=== PATIENT | male | born 1960 | race Caucasian/White ===

== ENCOUNTER 2017-06-17 13:22 | Emergency (ER) | payer OTHER ==
[~2017-06-17] VITALS: Ht 182.9 cm; Wt 78.5 kg
[2017-06-17 13:37] VITALS: BP 124/78; PULSE 113; RESP 16; TEMP 98.3; O2SAT 95
[2017-06-17] MEDS ORDERED: ONDANSETRON HCL 4 MG/2 ML VIAL IV PUSH ONE (14:00)
[2017-06-17] MEDS ORDERED: MORPHINE SULFATE 2 MG/ML INJ IV PUSH ONE ×2 (14:00→15:00)
--- NOTE | 2017-06-17 14:01 | PD ---
HPI . Testicular pain Chief Complaint: Injury Time Seen by Provider: 13:53 Travel History International Travel<30 days: No Contact w/Intl Traveler<30days: No Traveled to known affect area: No History of Present Illness HPI This patient presents with chief complaint of bilateral testicular pain. Onset was 3 days ago. He believes that the pain is secondary to getting onto a bicycle incorrectly. He rates pain 8/10. Pain is somewhat relieved by wearing tight underwear and is exacerbated by wearing boxers. It is also exacerbated by sitting. There has been no associated penile discharge. [facility] Past Medical History Respiratory: Yes (COPD) Social History Tobacco Use: No Allergies-Medications (Allergen,Severity, Reaction): Coded Allergies: No Known Allergies (Unverified , 06/17/17) Reported Meds & Prescriptions Reported Meds & Active Scripts Active Reported Atripla (Ddnvwbdsk-Lepynhfubxdgo-Kxzxiocvu) 600-200-300 Mg Tab 1 Tab PO HS Take on an empty stomach. Trazodone (Trazodone HCl) 150 Mg Tablet 150 Mg PO HS Lyrica (Pregabalin) 150 Mg Cap 150 Mg PO HS Lyrica (Pregabalin) 75 Mg Cap 75 Mg PO DAILY Cymbalta DR (Duloxetine HCl) 30 Mg Capdr 30 Mg PO DAILY Clonazepam 0.5 Mg Tab 0.5 Mg PO BID Review of Systems Except as stated in HPI: all other systems reviewed are Neg General / Constitutional: No: Fever, Chills Genitourinary: Positive: Other, No: Discharge Physical Exam Narrative GENERAL: Awake and alert and in no acute distress. He looks concerned. SKIN: Warm and dry. Good color and turgor. HEAD: Normocephalic/atraumatic. EYES: Pupils are equal. Extraocular movements are intact. NECK: Normal range of motion. CARDIOVASCULAR: Regular rate and rhythm. RESPIRATORY: Nonlabored respirations. : Normal circumcised male with no penile discharge. He has testicular masses felt bilaterally in the superior pole of both testes. The left testicular mass feels larger than the right. They're both tender. The masses do not feel like the usual mass associated with epididymitis. MUSCULOSKELETAL: Atraumatic. NEUROLOGICAL: Nonfocal. PSYCHIATRIC: Appropriate mood and affect. Data Data Last Documented VS Vital Signs Date Time Temp Pulse Resp B/P (MAP) Pulse Ox O2 Delivery O2 Flow Rate FiO2 06/17/17 15:03 95 18 118/79 (92) 98 Room Air 06/17/17 13:37 98.3 Orders Orders Us Testicles W Doppler (06/17/17 13:57) ^ Saline Lock (06/17/17 13:57) Ondansetron Inj (Zofran Inj) (06/17/17 14:00) Morphine Inj (Morphine Inj) (06/17/17 14:00) Gc And Chlamydia Pcr (06/17/17 13:57) Morphine Inj (Morphine Inj) (06/17/17 15:00) Labs Laboratory Tests Test 06/17/17 14:40 [facility] Medical Decision Making Medical Screen Exam Complete: Yes Emergency Medical Condition: Yes Differential Diagnosis Differential diagnosis of testicular pain includes but is not limited to hernia , torsion, epididymoorchitis, groin strain. Narrative Course This patient presents with bilateral testicular pain and no masses. Ultrasound is pending for further evaluation. He'll be given morphine for pain in the meantime. US>>Testicles are unremarkable. Left varicocele. The history, exam, diagnostic testing, and current condition do not suggest any significant pathology to warrant further testing, continued ED treatment, admission, or surgical evaluation at this point. No EMC was found. The patient 's condition is stable and appropriate for discharge. Diagnosis Primary Impression: Testicular pain, left Additional Impression: Testicular pain, right Patient Instructions: General Instructions, Testicle Pain (ED) Med/Other Pt SpecificInfo: Prescription(s) given Scripts Nabumetone (Nabumetone) 500 Mg Tab 500 MG PO BID for Pain-Inflammation, #60 TAB 0 Refills Prov: Fernanda Salcedo MD 06/17/17 Tramadol (Ultram) 50 Mg Tab 50 MG PO Q4H Y for PAIN, #12 TAB 0 Refills Prov: Fernanda Salcedo MD 06/17/17 Disposition: 01 DISCHARGE HOME Condition: Stable Fernanda Salcedo MD Jun 17, 2017 14:01
[2017-06-17] MEDS ORDERED: ATRITAB PO (14:08)
[2017-06-17] MEDS ORDERED: TRAZ1TAB14 PO (14:08)
[2017-06-17] MEDS ORDERED: LYRI150C PO (14:08)
[2017-06-17] MEDS ORDERED: LYRI75CA PO (14:08)
[2017-06-17] MEDS ORDERED: CYMB30CA PO (14:08)
[2017-06-17] MEDS ORDERED: CLON0.5T PO (14:08)
[2017-06-17 15:03] VITALS: BP 118/79; PULSE 95; RESP 18; O2SAT 98
--- NOTE | 2017-06-17 15:18 | RADRPT ---
EXAM DATE/TIME: 06/17/2017 14:37 [facility] COMPARISON: No previous studies available for comparison. INDICATIONS : Sat down hard on bicycle seat, now has bilateral testicle pain. MEDICAL HISTORY : Bilateral testicle pain. SURGICAL HISTORY : None. ENCOUNTER: Initial ACUITY: 3 days PAIN SCORE: 8/10 LOCATION: Bilateral testicles. MEASUREMENTS: RIGHT TESTICLE: 3.4 x 3.4 x 2.0cm LEFT TESTICLE: 3.8 x 2.6 x 2.2cm FINDINGS: RIGHT TESTICLE: Homogeneous echotexture without intra or extratesticular mass. Blood flow is symmetric and within no rmal limits no varicocele. Small epididymal cysts. Minimal hydrocele fluid. LEFT TESTICLE: Homogeneous echotexture without intra or extratesticular mass. Blood flow is symmetric and within no rmal limits. Small epididymal cyst. Moderate varicocele SCROTUM: Within normal limits. CONCLUSION: Testicles are unremarkable. Left varicocele. Christian Hobbs MD on June 17, 2017 at 15:13 Board Certified Radiologist. This report was verified electronically.
[2017-06-17] MEDS ORDERED: TRAM50 PO (15:24)
[2017-06-17] MEDS ORDERED: NABU1TAB37 PO (15:24)
[2017-06-17 15:45] VITALS: BP 117/72
== END 2017-06-17 15:45 | disposition home or self-care (01) ==
LOC: PHED 13:22
DX: N50.812 Left testicular pain (principal); N50.811 Right testicular pain; I86.1 Scrotal varices; Z87.09 Personal history of other diseases of the respiratory system
CPT/HCPCS: 76870; 87491; 87591; 93975; 96374; 96375; 96376; 99285; J2270; J2405